=== PATIENT | male | born 1970 | race Caucasian/White ===

== ENCOUNTER 2016-06-18 07:31 | Emergency (ER) | payer OTHER ==
[~2016-06-18] VITALS: Ht 177.8 cm; Wt 86.2 kg
[2016-06-18 07:38] VITALS: BP 157/93
[2016-06-18] MEDS ORDERED: CLONIDINE HCL0.1 MG PO (08:15)
[2016-06-18] MEDS ORDERED: ZOFRAN ODT4 M1 SL (08:15)
--- NOTE | 2016-06-18 08:16 | ED GENERAL ADULT ---
History of Present Illness General Chief Complaint: General Adult Stated Complaint: INSOMNIA Source: patient Exam Limitations: no limitations Vital Signs & Intake/Output Vital Signs & Intake/Output Vital Signs Date Time Temp Pulse Resp B/P Pulse O2 O2 Flow FiO2 Ox Delivery Rate 06/18 0738 97.8 92 16 157/93 100 Room Air Allergies Coded Allergies: NO KNOWN ALLERGIES (12/26/10) Triage Note: PT STATSE HE HAS INSOMNIA AND HE IS DETOXING OFF OF METHADONE. PT STATES HE WAS DOING A SLOW TAPER OVER THE PAST MONTH AND HIS LAST DOSE WAS ON FRIDAY. Triage Nurses Notes Reviewed? yes HPI: 45-year-old man seen for evaluation of insomnia. He was previously seen by a methadone clinic in [place] and completed a methadone taper this past Friday. He is now followed by a addiction clinic in [place] called [facility] for further care. He reports symptoms of vague muscle pains with associated insomnia, stating he had slept in 4 nights. He is requesting clonidine as recommended by his clinic with something for sleep. Otherwise he denies any headache, fever, chills, chest pain, palpitations, shortness of breath, cough, nausea, vomiting, diarrhea. (CHRIST RESENDIZ MD) Reconcile Medications Clonidine HCl 0.1 MG TABLET 1 TAB PO QPM WITHDRAW Take one tablet by mouth three times a day for one day (06/18/16) Take one tablet by mouth two times a day for one day (06/19/16) Take one tablet by mouth once a day (06/20/16) Ondansetron (Zofran Odt) 4 MG TAB.RAPDIS 1 TAB SL TID NAUSEA/VOMITING (LOREE SEAY MD) Past History Travel History Traveled to [place] past 21 day No Medical History Any Pertinent Medical History? see below for history Surgical History Surgical History: non-contributory Psychosocial History What is your primary language Kazakh Tobacco Use: Never used ETOH Use: occasional use Illicit Drug Use: denies illicit drug use Family History Hx Contributory? No (CHRIST RESENDIZ MD) Review of Systems Review of Systems Constitutional: Reports: see HPI. (CHRIST RESENDIZ MD) Review of Systems Constitutional: Reports: no symptoms. EENTM: Reports: no symptoms. Respiratory: Reports: no symptoms. Cardiovascular: Reports: no symptoms. GI: Reports: no symptoms. Genitourinary: Reports: no symptoms. Musculoskeletal: Reports: no symptoms. Skin: Reports: no symptoms. Neurological/Psychological: Reports: see HPI. Hematologic/Endocrine: Reports: no symptoms. Immunologic/Allergic: Reports: no symptoms. All Other Systems: Reviewed and Negative (LOREE SEAY MD) Physical Exam Physical Exam General Appearance: well developed/nourished, no apparent distress, alert, awake , anxious Comments: General -well-developed, well-nourished middle-aged man in no acute distress HEENT - NCAT, PERRL, EOMI, anicteric sclera Cardio - S1, S2 w/o murmurs/gallops/rubs Resp - CTA bilaterally w/o wheezing/rhochi/crackles Neuro - Awake and alert, CN II - XII grossly intact Core Measures ACS in differential dx? No CVA/TIA Diagnosis: No Severe Sepsis Present: No Septic Shock Present: No (CHRIST RESENDIZ MD) Progress Differential Diagnoses I considered the following diagnoses in my evaluation of the patient: Opiate withdrawal Plan of Care: Patient is requesting symptomatic relief of his opiate withdrawal symptoms. He was recommended clonidine by his opiate addiction clinic in [place] called [facility]. He is to be provided a prescription of clonidine and Zofran with instruction to take ibuprofen as needed for pain and melatonin as needed for sleep disturbance. He is to follow-up with his primary care provider after discharge and his opiate addiction clinic in [place]. Initial ED EKG: none (CHRIST RESENDIZ MD) Differential Diagnoses I considered the following diagnoses in my evaluation of the patient: (LOREE SEAY MD) Departure Departure Disposition: HOME OR SELF CARE Condition: Stable Clinical Impression Primary Impression: Opiate withdrawal Referrals: Michael DAVIDSON MD (PCP/Family) Additional Instructions: Take clonidine and Zofran as directed. Take ibuprofen as needed for pain relief. Take melatonin 30 minutes before bedtime for insomnia. Follow-up with your primary care provider after discharge and your clinic in [place]. Departure Forms: Customer Survey General Discharge Information Prescriptions: Current Visit Scripts Clonidine HCl 1 TAB PO QPM #6 TAB Take one tablet by mouth three times a day for one day (06/18/16) Take one tablet by mouth two times a day for one day (06/19/16) Take one tablet by mouth once a day (06/20/16) Ondansetron (Zofran Odt) 1 TAB SL TID #15 TAB (CHRIST RESENDIZ MD) Resident Co-Sign Statement Statement: ED Attending supervision documentation- x I saw and evaluated the patient. I have also reviewed all the pertinent lab results and diagnostic results. I agree with the findings and the plan of care as documented in the Resident's documentation. [] I have reviewed the ED Record and agree with the Resident's documentation. [] Additions or exceptions (if any) to the Resident's note and plan are summarized below: [] (GEENA DE LA GARZA,LOREE) Critical Care Note Critical Care Note Critical Care Time: non-applicable (CHRIST RESENDIZ MD)
[2016-06-19] MEDS ORDERED: AMBIEN10 M1 PO (05:20)
== END 2016-06-18 08:28 ==
LOC: ERH 07:31
DX: F11.23 Opioid dependence with withdrawal (principal)

== ENCOUNTER 2016-06-19 03:57 | Emergency (ER) | payer OTHER ==
[~2016-06-19] VITALS: Ht 177.8 cm; Wt 86.2 kg
[~2016-06-19 03:57] MED LIST: CLONIDINE HCL0.1 MG PO; ZOFRAN ODT4 M1 SL
[2016-06-19] MEDS ORDERED: AMBIEN10 M1 PO (05:20)
--- NOTE | 2016-06-19 05:22 | ED GENERAL ADULT ---
History of Present Illness General Chief Complaint: ETOH/Drug Related Complaint Stated Complaint: SEEN HERE YEST "DETOXING OF METHADONE" Source: patient, old records Exam Limitations: no limitations Vital Signs & Intake/Output Vital Signs & Intake/Output Vital Signs Date Time Temp Pulse Resp B/P Pulse O2 O2 Flow FiO2 Ox Delivery Rate 06/19 0410 97.7 79 18 115/74 98 Room Air Allergies Coded Allergies: NO KNOWN ALLERGIES (12/26/10) Reconcile Medications Clonidine HCl 0.1 MG TABLET 1 TAB PO QPM WITHDRAW Take one tablet by mouth three times a day for one day (06/18/16) Take one tablet by mouth two times a day for one day (06/19/16) Take one tablet by mouth once a day (06/20/16) Triage Note: PT FROM HOME C/O DETOXING FROM METHADONE CAUSING INSOMNIA. PT STATES "IM DETOXING FROM METHADONE AND MY LAST DOSE WAS ON FRIDAY, I STARTED ON 90MG AND WAS ON A TAPER." PT DENIES SI/HI. PT DENIES THE USE OF ALCOHOL OR DRUGS. PT STATES " I WAS HERE YESTERDAY AND THEY PRESCIBED ME CLONADINE 0.1MG AND SUSANNAH BEEN TAKING THAT AND BENADRYL AND NOTHING IS HELPING. PT IS ANXIOUS AND KEEPS MOVING IN TRIAGE. 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 Triage Nurses Notes Reviewed? yes HPI: Patient presents for evaluation of severe insomnia. Patient states that he has tapered his methadone to off and his last methadone dose was on Friday. Since then he has had worsening and severe nightly insomnia that has been unresponsive to Tylenol PM Benadryl and melatonin. He is also taking clonidine for his withdrawal and this does not seem to be helping the insomnia as well. Past History Travel History Traveled to [place] past 21 day No Medical History Any Pertinent Medical History? see below for history Surgical History Surgical History: non-contributory Psychosocial History What is your primary language Venezuelan Tobacco Use: Never used ETOH Use: denies use Illicit Drug Use: denies illicit drug use Family History Hx Contributory? No Review of Systems Review of Systems Constitutional: Reports: no symptoms. EENTM: Reports: no symptoms. Respiratory: Reports: no symptoms. Cardiovascular: Reports: no symptoms. GI: Reports: no symptoms. Genitourinary: Reports: no symptoms. Musculoskeletal: Reports: no symptoms. Skin: Reports: no symptoms. Neurological/Psychological: Reports: no symptoms, other. Hematologic/Endocrine: Reports: no symptoms. Immunologic/Allergic: Reports: no symptoms. All Other Systems: Reviewed and Negative Physical Exam Physical Exam General Appearance: SEE BELOW Comments: General: Alert, calm, cooperative Head: Normocephalic, atraumatic Eyes: Normal inspection, no nystagmus, EOMI Ears: Normal inspection Nose: Normal inspection Throat: Moist mucosa Neck: Supple, no goiter Heart: Regular rate and rhythm, no murmurs rubs or gallops Lungs: Clear to auscultation bilaterally with good air entry Abdomen: Soft nontender nondistended, normal bowel sounds Chest: Nontender Extremities: Normal range of motion grossly, no tremors present, no cyanosis clubbing or edema of the upper extremities Neurologic: cranial nerves II through XII grossly intact, speech clear, gait normal Psychiatric: No apparent delusions or hallucinations, no pressured speech or thought blocking Core Measures ACS in differential dx? No CVA/TIA Diagnosis: No Severe Sepsis Present: No Septic Shock Present: No Progress Differential Diagnoses I considered the following diagnoses in my evaluation of the patient: Acute withdrawal, depression Plan of Care: BHAVANA Campos follow-up Initial ED EKG: none Comments: Patient declined crisis evaluation. Departure Departure Disposition: HOME OR SELF CARE Condition: Stable Clinical Impression Primary Impression: Insomnia Qualifiers: Insomnia type: unspecified Qualified Code: G47.00 - Insomnia, unspecified Referrals: Michael DAVIDSON MD (PCP/Family) Additional Instructions: Follow-up with your primary care physician as scheduled this week. Ambien as needed for insomnia. Return if any concerns or sudden worsening. Departure Forms: Customer Survey General Discharge Information Prescriptions: Current Visit Scripts Zolpidem Tartrate (Ambien) 1 TAB PO QPM PRN INSOMNIA #7 TAB Critical Care Note Critical Care Note Critical Care Time: non-applicable
[2016-06-19 05:52] VITALS: BP 120/80
== END 2016-06-19 05:53 ==
LOC: ERH 03:57
DX: G47.00 Insomnia, unspecified (principal)